=== PATIENT | male | born 1955 | race Two or more races ===

== ENCOUNTER 2022-06-30 10:35 | Outpatient (CLI) | payer OTHER | END 2022-06-30 23:59 | disposition home or self-care (01) | LOC: LAB 10:35 | PROVIDERS: ATTEND Specialist | DX: Z01.812 Encounter for preprocedural laboratory examination (principal); Z20.822 Contact with and (suspected) exposure to COVID-19 | CPT/HCPCS: U0003; C9803 ==

== ENCOUNTER 2022-07-06 05:13 | Day surgery (SDC) | payer OTHER ==
[2022-07-06] MEDS ORDERED: BUPIVACAINE 0.5 % PF 150 MG/30 ML VIAL ONE (06:23)
[2022-07-06] MEDS ORDERED: EPINEPHRINE (1:1000) 1 MG/ML AMPUL ONE (06:24)
[2022-07-06] MEDS ORDERED: methylPREDNISolone ACETATE 80 MG/ML VIAL ONE (06:24)
[2022-07-06] MEDS ORDERED: HYDROMORPHONE INJ 2 MG/ML DISP.SYRIN ONE (06:46)
[2022-07-06] MEDS ORDERED: ROCURONIUM BROMIDE 50 MG/5 ML ONE (06:46)
[2022-07-06] MEDS ORDERED: FENTANYL PF 100MCG/2ML AMPUL ONE (06:46)
== END 2022-07-06 09:45 | disposition home or self-care (01) ==
LOC: DS 05:13
PROVIDERS: ATTEND Specialist
DX: M75.42 Impingement syndrome of left shoulder (principal)
CPT/HCPCS: 29823; 29826; J0690; J3490 ×2; J1040; J1100; J2704; J0171; J3010; J1170; J0330; J2405; J7030; A4217